=== PATIENT | male | born 1995 | race Caucasian/White ===

== ENCOUNTER 2016-12-04 23:48 | Emergency (ER) | payer OTHER ==
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
== END 2016-12-05 00:36 | disposition home or self-care (01) ==
LOC: CED 23:48
DX: S50.01XA Contusion of right elbow, initial encounter (principal); S30.0XXA Contusion of lower back and pelvis, initial encounter; V19.9XXA Pedal cyclist (driver) (passenger) injured in unspecified traffic accident, initial encounter; Y92.410 Unspecified street and highway as the place of occurrence of the external cause
CPT/HCPCS: 71020; 72100; 72125; 72170; 73070; 90471; 90715; 99284

== ENCOUNTER 2017-04-20 21:54 | Emergency (ER) | payer OTHER ==
[~2017-04-20] VITALS: Ht 167.6 cm; Wt 68.0 kg
== END 2017-04-21 01:14 | disposition home or self-care (01) ==
LOC: CFTX 21:54 → CED 21:54 → CFTX 23:59
DX: S61.210A Laceration without foreign body of right index finger without damage to nail, initial encounter (principal); Z88.0 Allergy status to penicillin; W45.8XXA Other foreign body or object entering through skin, initial encounter; Y92.69 Other specified industrial and construction area as the place of occurrence of the external cause; Y99.0 Civilian activity done for income or pay
CPT/HCPCS: 12001; 99283